=== PATIENT | male | born 1995 | race Caucasian/White ===

== ENCOUNTER 2018-10-02 18:32 | Emergency (ER) | payer OTHER ==
--- NOTE | 2018-10-02 18:34 | EDPHY ---
H & P Time Seen by Provider: 10/02/18 18:33 HPI/ROS: CHIEF COMPLAINT: Referred to ED for abnormal head CT scan HISTORY OF PRESENT ILLNESS: The patient presents the emergency department from imaging after he had an abnormal outpatient CT scan. [place] He reportedly fell onto his head. Since that time he has been having headache, blurry vision and nausea. The patient also has some generalized pain throughout the cervical spine and pain in his right thumb. He had unremarkable radiographs of the cervical spine in thumb. He denies any acute numbness or weakness. He denies any vision loss. He denies any complaints of thoracic, abdominal, pelvic or additional extremity trauma. The patient's CT scan suggested the possibility of a small hemorrhage in the cerebellum versus artifact verses blood vessel. The radiologist recommended an MRI with and without contrast for further characterization. REVIEW OF SYSTEMS: A comprehensive 10 point review of systems is otherwise negative aside from elements mentioned in the history of present illness. Source: Patient Exam Limitations: No limitations - Medical/Surgical History PMH: Past medical history: Noncontributory - Family History Significant Family History: No pertinent family hx - Physical Exam Exam: General Appearance: Alert, no distress Head: Atraumatic Eyes: Pupils equal, round, reactive ENT, Mouth: No hemotympanum, no oral trauma Neck: Tenderness to palpation throughout the cervical spine primarily in the posterior cervical musculature. Respiratory: No chest wall tender, no subcutaneous air, lungs clear bilaterally Cardiovascular: Regular rate and rhythm Abdomen: Abdomen is soft and nontender, pelvis stable Skin: No lacerations, No abrasion Back: No midline T/L/S pain Extremities: Right hand in splint, tenderness to palpation at the base of the right thumb Neurological: A&Ox3, normal motor function, normal sensory exam, GCS 15 Constitutional: Initial Vital Signs Temperature (C) 37 C 10/02/18 18:36 Heart Rate 70 10/02/18 18:36 Respiratory Rate 16 10/02/18 18:36 Blood Pressure 112/54 L 10/02/18 18:36 O2 Sat (%) 95 10/02/18 18:36 Allergies/Adverse Reactions: No Known Allergies Allergy (Unverified 10/02/18 18:36) Home Medications: Medication Instructions Recorded NK [No Known Home Meds] 04/18/19 Medical Decision Making - Diagnostics Imaging Results: Imaging Impressions Cervical Spine X-Ray 10/02/18 18:00 Impression: Negative three-view cervical spine. Finger X-Ray 10/02/18 18:00 Impression: Normal. Head CT 10/02/18 18:00 Impression: Possible left cerebellar white matter hemorrhage versus cerebellar lesion of other etiology (possible venous angioma). Recommend MRI without and with contrast for further evaluation. Initial results discussed with Dr. Chuck Kinsey at 5:29 PM. A second message was left for Dr. Kinsey at 5:40 PM to discuss the subsequently identified possible left cerebellar finding. General information for patients regarding this examination can be found at [email or web address]. If you have questions or comments about this report, please contact me at (hospital) or [phone] (cell). Brain MRI: With and without contrast. Images reviewed by myself and discussed with the radiologist Dr. Diop. 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 No additional evidence of intracranial abnormality is noted. Specifically no evidence of trauma, active bleeding or tumor. ED Course/Re-evaluation: I reviewed the patient's outpatient imaging studies including his negative right hand x-ray, negative cervical spine x-rays and the CT scan which demonstrated an equivocal hyperdensity in the cerebellum. Patient is noted to be neurologically intact in the emergency department. He has a GCS of 15. The patient does have symptoms consistent with a concussion. He will be discharged home with a concussion aftercare pamphlet. He is referred to our on- call concussion specialist Dr. Ha for any protracted symptoms. Differential Diagnosis: Differential diagnosis considered includes intracranial hemorrhage, [employer] tumor, vascular malformation, concussion Departure - Departure Disposition: Home, Routine, Self-Care Clinical Impression: Concussion Condition: Good Instructions: Concussion (ED) Additional Instructions: 1. Your MRI demonstrates no evidence of an acute abnormality aside from a benign venous signal. 2. Concussion aftercare as directed. 3. You have been given the contact number for our on-call concussion specialist Dr. Ha if you have any protracted symptoms.
[2018-10-02] MEDS ORDERED: GADOBUTROL 10 ML VIAL IVP ONE (19:44)
[2018-10-02 20:51] VITALS: BP 121/77
== END 2018-10-02 20:51 | disposition home or self-care (01) ==
LOC: EDSTATUS 18:32
DX: S06.0X0A Concussion without loss of consciousness, initial encounter (principal); V00.321A Fall from snow-skis, initial encounter; Y93.23 Activity, snow (alpine) (downhill) skiing, snowboarding, sledding, tobogganing and snow tubing; Y92.838 Other recreation area as the place of occurrence of the external cause
CPT/HCPCS: A9585